=== PATIENT | female | born 1960 | race African-American/Black ===

== ENCOUNTER 2021-03-18 10:05 | Emergency (ER) | payer MEDICAID ==
[~2021-03-18] VITALS: Ht 167.6 cm; Wt 86.3 kg
[2021-03-18] MEDS ORDERED: HYDROcodone/APAP 5/325MG 1 TAB TABLET PO ONE (10:45)
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
[2021-03-18 13:08] VITALS: BP 135/65
== END 2021-03-18 13:35 | disposition home or self-care (01) ==
LOC: ER 10:05
DX: M17.12 Unilateral primary osteoarthritis, left knee (principal); M25.462 Effusion, left knee; M25.562 Pain in left knee; G89.11 Acute pain due to trauma; F17.200 Nicotine dependence, unspecified, uncomplicated; V40.6XXA Car passenger injured in collision with pedestrian or animal in traffic accident, initial encounter; Y93.89 Activity, other specified; Y92.488 Other paved roadways as the place of occurrence of the external cause; Y99.8 Other external cause status
CPT/HCPCS: 73564; 99285-25